=== PATIENT | male | born 1990 | race Caucasian/White ===

== ENCOUNTER 2022-10-12 12:41 | Emergency (ER) | payer OTHER ==
[~2022-10-12] VITALS: Ht 185 cm; Wt 96.0 kg
--- NOTE | 2022-10-12 12:50 | ED Fall/Injury ---
General Chief Complaint: Trauma-Non Activation Stated Complaint: WC FALL; RIB INJ History of Present Illness Date Seen by Provider: Oct 12, 2022 Time Seen by Provider: 12:49 Initial Comments 32-year-old male presents following a fall with rib pain. Patient was seen at his primary care office and had a negative chest x-ray. He has some pain with deep breath. Patient was sent to the ER by them because he was continued having pain and wanted him reevaluated. Upon arrival patient reports that the pain has improved. Still does have some pain with deep breath. Allergies and Home Medications Allergies Coded Allergies: Penicillins (Verified Allergy, Unknown, 10/12/22) amoxicillin (Verified Allergy, Unknown, 10/12/22) Patient Home Medication List Home Medication List Reviewed: Yes Review of Systems Review of Systems Constitutional: no symptoms reported Eyes: No Symptoms Reported Ears, Nose, Mouth, Throat: no symptoms reported Respiratory: see HPI Cardiovascular: see HPI Gastrointestinal: no symptoms reported Genitourinary: no symptoms reported Musculoskeletal: no symptoms reported Skin: no symptoms reported Psychiatric/Neurological: No Symptoms Reported Physical Exam Vital Signs Capillary Refill : Height, Weight, BMI Height: '" Weight: lbs. oz. kg; BMI Method: General Appearance: other (Covered and pain from the fall. No distress) Neck: full range of motion, supple Cardiovascular: normal peripheral pulses, regular rate, rhythm Respiratory: other (Tenderness left anterior ribs) Gastrointestinal: non tender, soft Extremities: normal range of motion, non-tender Neurologic/Psychiatric: alert, normal mood/affect, oriented x 3 Progress/Results/Core Measures Progress Progress Note : Progress Note Patient has been seen just previously by his primary care provider and had a negative x-ray with no indications of a pneumothorax or broken ribs. Discussed with patient additional imaging here in the ER with a CT. This time he reports his symptoms are improved and he would prefer to defer that. I will provide him with a Toradol shot to help with the discomfort. I discussed with him supportive care. He should return to the ER as needed. He was stable and discharged home Departure Impression Primary Impression: Fall from ladder Qualified Codes: W11.XXXA - Fall on and from ladder, initial encounter Additional Impression: Contusion of rib on left side Qualified Codes: S20.212A - Contusion of left front wall of thorax, initial encounter Disposition: 01 HOME, SELF-CARE Condition: Stable Departure-Patient Inst. Referrals: BALDOMERO ROBERTS (PCP) Primary Care Physician BAILEY MORALES MD (Family) Primary Care Physician Patient Instructions: Rib Fracture or Bruised Rib ED, Contusion (DC) Add. Discharge Instructions: 4% topical lidocaine with menthol cream gel or patch use as directed on package. Tylenol ibuprofen as needed for discomfort. Ice to affected area. You may use an Chris wrap to help with discomfort. Return to the ER with any concerns for further evaluation. All discharge instructions reviewed with patient and/or family. Voiced understanding. RICHARD GARCIA DO Oct 12, 2022 12:49
[2022-10-12] MEDS ORDERED: KETOROLAC 30 MG/ML VIAL IM STA (12:54)
[2022-10-12 13:04] VITALS: BP 167/97
== END 2022-10-12 13:04 | disposition home or self-care (01) ==
LOC: ER FS 12:44
DX: S20.20XA Contusion of thorax, unspecified, initial encounter (principal); W11.XXXA Fall on and from ladder, initial encounter
CPT/HCPCS: 96372; 99284